=== PATIENT | male | born 1955 | race African-American/Black ===

== ENCOUNTER 2016-11-12 15:52 | Emergency (ER) | payer MEDICAID, OTHER ==
[~2016-11-12] VITALS: Ht 170.2 cm; Wt 72.7 kg
[~2016-11-12 15:52] MED LIST: AMIT50TA3 PO; ASPI-556 PO; DOCU250C91 PO; DOXE25 PO; OMEP20 PO; SERT50TA12 PO
[2016-11-12] MEDS ORDERED: KETOROLAC TROMETHAMINE 60 MG/2 ML VIAL IM ONE (18:15)
[2016-11-12 19:30] VITALS: BP 128/78
== END 2016-11-12 19:33 | disposition home or self-care (01) ==
LOC: EMS 15:53
DX: S13.4XXA Sprain of ligaments of cervical spine, initial encounter (principal); F31.9 Bipolar disorder, unspecified; K21.9 Gastro-esophageal reflux disease without esophagitis; F17.210 Nicotine dependence, cigarettes, uncomplicated; G43.909 Migraine, unspecified, not intractable, without status migrainosus; M54.9 Dorsalgia, unspecified; Z79.899 Other long term (current) drug therapy; V89.2XXA Person injured in unspecified motor-vehicle accident, traffic, initial encounter; Y93.89 Activity, other specified; Y92.89 Other specified places as the place of occurrence of the external cause; Y99.8 Other external cause status
CPT/HCPCS: 72040; 96372; 99284; 99406; J1885

== ENCOUNTER 2017-03-20 13:37 | Emergency (ER) | payer OTHER ==
[~2017-03-20] VITALS: Ht 170.2 cm; Wt 80.0 kg
[~2017-03-20 13:37] MED LIST changes: -ASPI-556 PO; -DOXE25 PO
[2017-03-20] MEDS ORDERED: QUET25TA PO (13:54)
[2017-03-20] MEDS ORDERED: IBUPROFEN 800 MG TABLET PO ONE (15:00)
[2017-03-20 15:25] VITALS: BP 142/78
== END 2017-03-20 16:15 | disposition home or self-care (01) ==
LOC: EMS 13:39
DX: M25.531 Pain in right wrist (principal); M25.521 Pain in right elbow; R03.0 Elevated blood-pressure reading, without diagnosis of hypertension; K21.9 Gastro-esophageal reflux disease without esophagitis; F14.90 Cocaine use, unspecified, uncomplicated; F12.90 Cannabis use, unspecified, uncomplicated; F17.210 Nicotine dependence, cigarettes, uncomplicated
CPT/HCPCS: 99284

== ENCOUNTER 2018-07-03 20:00 | Emergency (ER) | payer OTHER ==
[~2018-07-03] VITALS: Ht 170.2 cm; Wt 72.7 kg
[~2018-07-03 20:00] MED LIST changes: -DOCU250C91 PO; +QUET25TA PO; -SERT50TA12 PO
[2018-07-03 20:25] LABS: BASOPHILS % (AUTO) 0.5 % (0.0-2.0); EOSINOPHILS % (AUTO) 3.7 % (1.0-6.0); HEMATOCRIT 41.2 % (41-53); HEMOGLOBIN 14.2 g/dL (13.5-17.5); LYMPHOCYTES # (AUTO) 2.5 K/uL (1.0-4.8); LYMPHOCYTES % (AUTO) 28.4 % (22.0-44.0); MEAN CORPUSCULAR HEMOGLOBIN 29.2 pg (26.0-34.0); MEAN CORPUSCULAR HGB CONC 34.4 G/dL (31.0-37.0); MEAN CORPUSCULAR VOLUME 85 fL (80-100); MONOCYTES # (AUTO) 0.6 K/uL (0.1-1.0); MONOCYTES % (AUTO) 7.2 % (2.0-9.0); NEUTROPHILS # (AUTO) 5.2 K/uL (1.8-7.7); NEUTROPHILS % (AUTO) 60.2 % (40.0-70.0); PLATELET COUNT (AUTO) 237 K/uL (150-450); RED BLOOD CELL COUNT(AUTO) 4.86 MIL/uL (4.50-5.90); RED CELL DISTRIBUTION WIDTH 14.5 % (11.5-14.5)
[2018-07-03 20:38] LABS: ANION GAP 7 mmol/L (8-16); CALCIUM, TOTAL 9.2 mg/dL (8.8-10.5); CARBON DIOXIDE 31 mmol/L (22-29); CHLORIDE 104 mmol/L (98-107); CREATININE 1.15 mg/dL (0.60-1.30); GLOMERULAR FILTR. RATE CALC > 60 mL/min (>60); GLUCOSE,RANDOM 105 mg/dL (70-110); POTASSIUM 3.4 mmol/L (3.5-5.1); SODIUM SERUM 142 mmol/L (136-145); UREA NITROGEN, BLOOD 17 mg/dL (7-18)
[2018-07-03 20:44] LABS: ALANINE AMINOTRANSFERASE 26 U/L (12-78); ALBUMIN 3.3 g/dL (3.4-5.0); ALKALINE PHOSPHATASE 115 U/L (46-116); ASPARTATE AMINOTRANSFERASE 19 U/L (15-37); BILIRUBIN,TOTAL 0.4 mg/dL (0.1-1.0)
[2018-07-03] MEDS ORDERED: ASPIRIN 81 MG CHEWABLE TABLET PO ONE (22:00)
[2018-07-03 23:50] VITALS: BP 137/85
== END 2018-07-03 23:54 | disposition home or self-care (01) ==
LOC: EMS 20:02
DX: R07.9 Chest pain, unspecified (principal); F31.9 Bipolar disorder, unspecified; K21.9 Gastro-esophageal reflux disease without esophagitis; F12.90 Cannabis use, unspecified, uncomplicated; F15.90 Other stimulant use, unspecified, uncomplicated; F14.90 Cocaine use, unspecified, uncomplicated; F17.210 Nicotine dependence, cigarettes, uncomplicated
CPT/HCPCS: 93005

== ENCOUNTER 2018-08-02 23:57 | Emergency (ER) | payer OTHER ==
[~2018-08-02] VITALS: Ht 170.2 cm; Wt 72.7 kg
[2018-08-03 00:58] VITALS: BP 146/88
[2018-08-03] MEDS ORDERED: FLUORESCEIN SODIUM 1 MG STRIP ONE (01:11)
[2018-08-03] MEDS: ACETAMINOPHEN 500 MG TABLET PO ONE (01:16)
[2018-08-03] MEDS: PROPARACAINE HCL 0.5% 15 ML OPHTHALMIC SOLUTION OU ONE (01:16)
== END 2018-08-03 01:30 | disposition home or self-care (01) ==
LOC: EMS 08-03
DX: H57.11 Ocular pain, right eye (principal); F31.9 Bipolar disorder, unspecified; K21.9 Gastro-esophageal reflux disease without esophagitis; G43.909 Migraine, unspecified, not intractable, without status migrainosus; F17.210 Nicotine dependence, cigarettes, uncomplicated; F12.90 Cannabis use, unspecified, uncomplicated; F19.90 Other psychoactive substance use, unspecified, uncomplicated; F14.90 Cocaine use, unspecified, uncomplicated
CPT/HCPCS: 99406

== ENCOUNTER 2020-01-25 15:51 | Emergency (ER) | payer OTHER ==
[~2020-01-25] VITALS: Ht 170.2 cm; Wt 75.0 kg
[2020-01-25 15:53] VITALS: BP 149/67
[2020-01-25] MEDS ORDERED: KETOROLAC TROMETHAMINE 30 MG/ML VIAL IM ONE (18:00)
== END 2020-01-25 18:15 | disposition home or self-care (01) ==
LOC: EMS 15:54
DX: M54.42 Lumbago with sciatica, left side (principal); F31.9 Bipolar disorder, unspecified; K21.9 Gastro-esophageal reflux disease without esophagitis; G43.909 Migraine, unspecified, not intractable, without status migrainosus; F17.210 Nicotine dependence, cigarettes, uncomplicated; F12.90 Cannabis use, unspecified, uncomplicated; F14.90 Cocaine use, unspecified, uncomplicated; F19.90 Other psychoactive substance use, unspecified, uncomplicated
CPT/HCPCS: 96372; 99283; J1885

== ENCOUNTER 2020-06-05 14:41 | Emergency (ER) | payer OTHER ==
[~2020-06-05] VITALS: Ht 170.2 cm; Wt 72.7 kg
[2020-06-05 16:24] LABS: BASOPHILS % (AUTO) 0.7 % (0.0-2.0); EOSINOPHILS % (AUTO) 1.2 % (1.0-6.0); HEMATOCRIT 42.9 % (41-53); HEMOGLOBIN 14.5 g/dL (13.5-17.5); LYMPHOCYTES # (AUTO) 1.2 K/uL (1.0-4.8); LYMPHOCYTES % (AUTO) 21.9 % (22.0-44.0); MEAN CORPUSCULAR HEMOGLOBIN 28.3 pg (26.0-34.0); MEAN CORPUSCULAR HGB CONC 33.8 G/dL (31.0-37.0); MEAN CORPUSCULAR VOLUME 84 fL (80-100); MONOCYTES # (AUTO) 0.4 K/uL (0.1-1.0); MONOCYTES % (AUTO) 7.1 % (2.0-9.0); NEUTROPHILS # (AUTO) 3.9 K/uL (1.8-7.7); NEUTROPHILS % (AUTO) 69.1 % (40.0-70.0); PLATELET COUNT (AUTO) 193 K/uL (150-450); RED BLOOD CELL COUNT(AUTO) 5.13 MIL/uL (4.50-5.90); RED CELL DISTRIBUTION WIDTH 15.7 % (11.5-14.5)
[2020-06-05 16:34] LABS: ANION GAP 10 mmol/L (8-16); CALCIUM, TOTAL 8.2 mg/dL (8.8-10.5); CARBON DIOXIDE 27 mmol/L (22-29); CHLORIDE 102 mmol/L (98-107); CREATININE 1.22 mg/dL (0.60-1.30); GLOMERULAR FILTR. RATE CALC > 60 mL/min (>60); GLUCOSE,RANDOM 171 mg/dL (70-110); POTASSIUM 3.1 mmol/L (3.5-5.1); SODIUM SERUM 139 mmol/L (136-145); UREA NITROGEN, BLOOD 15 mg/dL (7-18)
[2020-06-05 16:42] LABS: ALANINE AMINOTRANSFERASE 21 U/L (12-78); ALBUMIN 3.2 g/dL (3.4-5.0); ALKALINE PHOSPHATASE 119 U/L (46-116); ASPARTATE AMINOTRANSFERASE 15 U/L (15-37); BILIRUBIN,TOTAL 0.3 mg/dL (0.1-1.0); TOTAL PROTEIN, SERUM 6.8 g/dL (6.4-8.2)
[2020-06-05] MEDS ORDERED: POTASSIUM CHLORIDE 20 MEQ ER TABLET PO ONE (17:00)
[2020-06-05 17:24] VITALS: BP 157/80
== END 2020-06-05 17:41 | disposition home or self-care (01) ==
LOC: EMS 14:41
DX: E87.6 Hypokalemia (principal); U07.1 COVID-19; F31.9 Bipolar disorder, unspecified; F17.210 Nicotine dependence, cigarettes, uncomplicated; F12.90 Cannabis use, unspecified, uncomplicated; F15.90 Other stimulant use, unspecified, uncomplicated; F14.90 Cocaine use, unspecified, uncomplicated
CPT/HCPCS: 93005; 99284; 99285; 36415-L1; 36415-TC; 71045-TC

== ENCOUNTER 2020-12-18 01:55 | Emergency (ER) | payer OTHER ==
[~2020-12-18] VITALS: Ht 170.2 cm; Wt 72.7 kg
[2020-12-18 01:57] VITALS: BP 116/61
[2020-12-18] MEDS ORDERED: CefTRIAXone SODIUM 500 MG in DEXTROSE 5%-WATER 50 ML IV ONE (03:15)
[2020-12-18] MEDS ORDERED: DOXYCYCLINE HYCLATE 100 MG TABLET PO ONE (03:15)
[2020-12-18] MEDS ORDERED: PENICILLIN G BENZATHINE LA 2,400,000 UNITS/4 ML SYRINGE IM ONE (03:15)
[2020-12-18] MEDS ORDERED: ACETAMINOPHEN 500 MG TABLET PO ONE (03:15)
[2020-12-18] MEDS ORDERED: CefTRIAXone SODIUM 1 GM/VIAL IM ONE (03:45)
[2020-12-18] MEDS ORDERED: LIDOCAINE/PF 1% 2 ML VIAL IM ONE (03:45)
== END 2020-12-18 04:04 | disposition home or self-care (01) ==
LOC: EMS 02:00
DX: L03.311 Cellulitis of abdominal wall (principal); F31.9 Bipolar disorder, unspecified; K21.9 Gastro-esophageal reflux disease without esophagitis; G43.909 Migraine, unspecified, not intractable, without status migrainosus; F17.210 Nicotine dependence, cigarettes, uncomplicated; F14.90 Cocaine use, unspecified, uncomplicated; F12.90 Cannabis use, unspecified, uncomplicated; F19.90 Other psychoactive substance use, unspecified, uncomplicated
CPT/HCPCS: 36415; 86592; 87491; 87591; 96372; 99284; J0561; J0696; J3490; J7060

== ENCOUNTER 2021-05-30 20:34 | Inpatient (IN) | payer OTHER ==
[~2021-05-30] VITALS: Ht 175.3 cm; Wt 77.4 kg
[2021-05-30] MEDS ORDERED: SODIUM CHLORIDE 0.9% 100 ML ONE (20:45)
[2021-05-30] MEDS ORDERED: IOHEXOL 350 MG/ML 100 ML VIAL ONE (20:45)
[2021-05-30] MEDS ORDERED: ACET-66 PO (20:47)
[2021-05-30] MEDS ORDERED: APIX5TAB PO (20:47)
[2021-05-30] MEDS ORDERED: TRAZ-252 PO (20:47)
[2021-05-30] MEDS ORDERED: DOXY50CA12 PO (20:47)
[2021-05-30 20:52] LABS: BASOPHILS % (AUTO) 0.7 % (0.0-2.0); EOSINOPHILS % (AUTO) 3.4 % (1.0-6.0); HEMATOCRIT 44.2 % (41-53); HEMOGLOBIN 15.4 g/dL (13.5-17.5); LYMPHOCYTES # (AUTO) 1.9 K/uL (1.0-4.8); MEAN CORPUSCULAR HEMOGLOBIN 28.2 pg (26.0-34.0); MEAN CORPUSCULAR HGB CONC 34.8 G/dL (31.0-37.0); MEAN CORPUSCULAR VOLUME 81 fL (80-100); MONOCYTES # (AUTO) 0.8 K/uL (0.1-1.0); MONOCYTES % (AUTO) 8.3 % (2.0-9.0); NEUTROPHILS # (AUTO) 6.1 K/uL (1.8-7.7); NEUTROPHILS % (AUTO) 66.6 % (40.0-70.0); PLATELET COUNT (AUTO) 230 K/uL (150-450); RED BLOOD CELL COUNT(AUTO) 5.45 MIL/uL (4.50-5.90); RED CELL DISTRIBUTION WIDTH 16.3 % (11.5-14.5)
[2021-05-30 20:57] LABS: ANION GAP 8 mmol/L (8-16); CALCIUM, TOTAL 9.1 mg/dL (8.8-10.5); CARBON DIOXIDE 29 mmol/L (22-29); CHLORIDE 105 mmol/L (98-107); CREATININE 1.09 mg/dL (0.60-1.30); GLOMERULAR FILTR. RATE CALC > 60 mL/min (>60); GLUCOSE,RANDOM 115 mg/dL (70-110); POTASSIUM 3.7 mmol/L (3.5-5.1); SODIUM SERUM 142 mmol/L (136-145); UREA NITROGEN, BLOOD 16 mg/dL (7-18)
[2021-05-30 21:04] LABS: ALANINE AMINOTRANSFERASE 25 U/L (12-78); ALBUMIN 3.6 g/dL (3.4-5.0); ALKALINE PHOSPHATASE 112 U/L (46-116); ASPARTATE AMINOTRANSFERASE 19 U/L (15-37); BILIRUBIN,TOTAL 0.8 mg/dL (0.1-1.0); TOTAL PROTEIN, SERUM 7.6 g/dL (6.4-8.2)
[2021-05-30 21:06] LABS: INR 1.2 (0.9-1.1); PROTHROMBIN TIME 12.2 SEC (9.4-11.6)
[2021-05-30] MEDS ORDERED: CLOPIDOGREL BISULFATE 75 MG TABLET PO ONE (21:45)
[2021-05-30] MEDS ORDERED: ONDANSETRON HCL 4 MG/2 ML VIAL IVP PRN ×2 (21:45→23:45)
[2021-05-30] MEDS ORDERED: ACETAMINOPHEN 325 MG TABLET PO PRN ×2 (21:45→23:45)
[2021-05-30] MEDS ORDERED: 0.9% SODIUM CHLORIDE 10 ML SYRINGE IVP PRN (21:45)
[2021-05-30] MEDS ORDERED: ASPIRIN 325 MG TABLET PO ONE (21:45)
[2021-05-30 21:51] LABS: COVID AG,FIA SOURCE NASAL SWAB
[2021-05-30 22:04] LABS: AMPHET/METH SCREEN,URINE POSITIVE (NEGATIVE); BARBITURATE SCREEN, URINE NEGATIVE (NEGATIVE); BENZODIAZEPINES SCREEN,URINE NEGATIVE (NEGATIVE); CANNABINOID SCREEN,URINE POSITIVE (NEGATIVE); COCAINE SCREEN,URINE POSITIVE (NEGATIVE); METHADONE SCREEN, URINE NEGATIVE (NEGATIVE); OPIATE SCREEN,URINE NEGATIVE (NEGATIVE); PHENCYCLIDINE SCREEN,URINE NEGATIVE (NEGATIVE)
[2021-05-30] MEDS ORDERED: MORPHINE SULFATE 2 MG/ML SYRINGE IVP PRN (23:45)
[2021-05-30] MEDS ORDERED: HYDROCODONE/ACETAMINOPHEN 5-325 MG TABLET PO PRN (23:45)
[2021-05-30] MEDS ORDERED: MAGNESIUM HYDROXIDE SUSPENSION 30 ML UDCUP PO PRN (23:45)
[2021-05-30] MEDS ORDERED: ZOLPIDEM TARTRATE 5 MG TABLET PO PRN (23:45)
[2021-05-30] MEDS ORDERED: BISACODYL 10 MG RECTAL RECTAL SUPPOSITORY PR PRN (23:45)
[2021-05-30] MEDS ORDERED: ASPIRIN 81 MG CHEWABLE TABLET PO ONE (23:45)
[2021-05-31] VITALS (8 sets, daily range): BP systolic 131–172; BP diastolic 77–97
[2021-05-31] MEDS: HEPARIN SODIUM,PORCINE 5,000 UNITS/ML VIAL SQ SCH ×4 (01:16→23:47)
[2021-05-31 07:56] LABS: BASOPHILS % (AUTO) 0.5 % (0.0-2.0); EOSINOPHILS % (AUTO) 4.4 % (1.0-6.0); HEMATOCRIT 44.8 % (41-53); HEMOGLOBIN 15.5 g/dL (13.5-17.5); LYMPHOCYTES # (AUTO) 2.8 K/uL (1.0-4.8); LYMPHOCYTES % (AUTO) 33.8 % (22.0-44.0); MEAN CORPUSCULAR HEMOGLOBIN 28.1 pg (26.0-34.0); MEAN CORPUSCULAR HGB CONC 34.5 G/dL (31.0-37.0); MEAN CORPUSCULAR VOLUME 82 fL (80-100); MONOCYTES # (AUTO) 0.7 K/uL (0.1-1.0); MONOCYTES % (AUTO) 7.8 % (2.0-9.0); NEUTROPHILS # (AUTO) 4.5 K/uL (1.8-7.7); NEUTROPHILS % (AUTO) 53.5 % (40.0-70.0); PLATELET COUNT (AUTO) 224 K/uL (150-450); RED BLOOD CELL COUNT(AUTO) 5.49 MIL/uL (4.50-5.90)
[2021-05-31 08:07] LABS: ALANINE AMINOTRANSFERASE 21 U/L (12-78); ALBUMIN 3.4 g/dL (3.4-5.0); ALKALINE PHOSPHATASE 109 U/L (46-116); ANION GAP 9 mmol/L (8-16); ASPARTATE AMINOTRANSFERASE 18 U/L (15-37); BILIRUBIN,TOTAL 0.7 mg/dL (0.1-1.0); CALCIUM, TOTAL 8.9 mg/dL (8.8-10.5); CARBON DIOXIDE 29 mmol/L (22-29); CHLORIDE 104 mmol/L (98-107); CREATININE 1.03 mg/dL (0.60-1.30); GLOMERULAR FILTR. RATE CALC > 60 mL/min (>60); GLUCOSE,RANDOM 84 mg/dL (70-110); POTASSIUM 3.6 mmol/L (3.5-5.1); SODIUM SERUM 142 mmol/L (136-145); TOTAL PROTEIN, SERUM 6.9 g/dL (6.4-8.2); UREA NITROGEN, BLOOD 15 mg/dL (7-18)
[2021-05-31] MEDS: PANTOPRAZOLE SODIUM 40 MG DR TABLET PO SCH (09:36)
[2021-05-31] MEDS: DOCUSATE SODIUM 100 MG CAPSULE PO SCH ×2 (09:36→21:21)
[2021-05-31] MEDS ORDERED: GADOTERATE MEGLUMINE 10 MMOL/20 ML VIAL IVP ONE (11:35)
[2021-05-31] MEDS: ATORVASTATIN CALCIUM 20 MG TABLET PO SCH (21:21)
[2021-06-01] VITALS (7 sets, daily range): BP systolic 133–152; BP diastolic 75–87
[2021-06-01 03:04] LABS: APPEARANCE,URINE CLEAR (CLEAR); BILIRUBIN,URINE NEGATIVE (NEGATIVE); GLUCOSE, URINE (UA) NEGATIVE (NEGATIVE); KETONES,URINE NEGATIVE (NEGATIVE); LEUKOCYTE ESTERASE ,URINE NEGATIVE (NEGATIVE); NITRATE,URINE NEGATIVE (NEGATIVE); OCCULT BLOOD,URINE NEGATIVE (NEGATIVE); PROTEIN,URINE NEGATIVE (NEGATIVE)
[2021-06-01 03:05] LABS: AMPHET/METH SCREEN,URINE POSITIVE (NEGATIVE); BARBITURATE SCREEN, URINE NEGATIVE (NEGATIVE); BENZODIAZEPINES SCREEN,URINE NEGATIVE (NEGATIVE); CANNABINOID SCREEN,URINE POSITIVE (NEGATIVE); COCAINE SCREEN,URINE POSITIVE (NEGATIVE); METHADONE SCREEN, URINE NEGATIVE (NEGATIVE); OPIATE SCREEN,URINE NEGATIVE (NEGATIVE)
[2021-06-01 03:06] LABS: PHENCYCLIDINE SCREEN,URINE NEGATIVE (NEGATIVE)
[2021-06-01 03:07] LABS: BACTERIA,URINE None Seen /HPF (None Seen); RBC,URINE None Seen /HPF (0-2); WBC,URINE None Seen /HPF (0-5)
[2021-06-01 07:12] LABS: BASOPHILS % (AUTO) 0.4 % (0.0-2.0); EOSINOPHILS % (AUTO) 1.9 % (1.0-6.0); HEMATOCRIT 46.3 % (41-53); HEMOGLOBIN 16.2 g/dL (13.5-17.5); LYMPHOCYTES # (AUTO) 2.9 K/uL (1.0-4.8); LYMPHOCYTES % (AUTO) 29.4 % (22.0-44.0); MEAN CORPUSCULAR HEMOGLOBIN 28.4 pg (26.0-34.0); MEAN CORPUSCULAR VOLUME 81 fL (80-100); MONOCYTES # (AUTO) 0.8 K/uL (0.1-1.0); MONOCYTES % (AUTO) 8.4 % (2.0-9.0); NEUTROPHILS # (AUTO) 5.8 K/uL (1.8-7.7); NEUTROPHILS % (AUTO) 59.9 % (40.0-70.0); PLATELET COUNT (AUTO) 229 K/uL (150-450); RED BLOOD CELL COUNT(AUTO) 5.73 MIL/uL (4.50-5.90)
[2021-06-01 07:21] LABS: ANION GAP 10 mmol/L (8-16); CALCIUM, TOTAL 9.2 mg/dL (8.8-10.5); CARBON DIOXIDE 27 mmol/L (22-29); CHLORIDE 103 mmol/L (98-107); CREATININE 1.15 mg/dL (0.60-1.30); GLOMERULAR FILTR. RATE CALC > 60 mL/min (>60); GLUCOSE,RANDOM 83 mg/dL (70-110); POTASSIUM 3.5 mmol/L (3.5-5.1); SODIUM SERUM 140 mmol/L (136-145); UREA NITROGEN, BLOOD 17 mg/dL (7-18)
[2021-06-01] MEDS: PANTOPRAZOLE SODIUM 40 MG DR TABLET PO SCH (08:18)
[2021-06-01] MEDS: DOCUSATE SODIUM 100 MG CAPSULE PO SCH ×2 (08:18→21:37)
[2021-06-01] MEDS: HEPARIN SODIUM,PORCINE 5,000 UNITS/ML VIAL SQ SCH ×3 (08:18→23:25)
[2021-06-01 20:22] LABS: CHOL/HDL RATIO 4.2 (4.2-7.3); CHOLESTEROL 234 mg/dL (131-200); HDL CHOLESTEROL 56 mg/dL (40-60); LDL CHOL (CALC.) 160 mg/dL (0-130); TRIGLYCERIDES 91 mg/dL (15-150)
[2021-06-01] MEDS: ASPIRIN 81 MG CHEWABLE TABLET PO SCH (21:37)
[2021-06-01] MEDS: ATORVASTATIN CALCIUM 20 MG TABLET PO SCH (21:37)
[2021-06-01] MEDS: CLOPIDOGREL BISULFATE 75 MG TABLET PO SCH (21:37)
[2021-06-02 05:34] VITALS: BP 150/80
[2021-06-02 07:47] LABS: BASOPHILS % (AUTO) 0.6 % (0.0-2.0); EOSINOPHILS % (AUTO) 1.1 % (1.0-6.0); HEMATOCRIT 45.4 % (41-53); LYMPHOCYTES # (AUTO) 2.9 K/uL (1.0-4.8); LYMPHOCYTES % (AUTO) 29.5 % (22.0-44.0); MEAN CORPUSCULAR HEMOGLOBIN 28.4 pg (26.0-34.0); MEAN CORPUSCULAR HGB CONC 35.2 G/dL (31.0-37.0); MEAN CORPUSCULAR VOLUME 81 fL (80-100); MONOCYTES # (AUTO) 0.9 K/uL (0.1-1.0); MONOCYTES % (AUTO) 8.7 % (2.0-9.0); NEUTROPHILS # (AUTO) 5.9 K/uL (1.8-7.7); NEUTROPHILS % (AUTO) 60.1 % (40.0-70.0); PLATELET COUNT (AUTO) 240 K/uL (150-450); RED BLOOD CELL COUNT(AUTO) 5.63 MIL/uL (4.50-5.90); RED CELL DISTRIBUTION WIDTH 15.9 % (11.5-14.5)
[2021-06-02 08:00] LABS: ANION GAP 9 mmol/L (8-16); CARBON DIOXIDE 25 mmol/L (22-29); CHLORIDE 104 mmol/L (98-107); CREATININE 1.28 mg/dL (0.60-1.30); GLOMERULAR FILTR. RATE CALC > 60 mL/min (>60); GLUCOSE,RANDOM 97 mg/dL (70-110); POTASSIUM 3.5 mmol/L (3.5-5.1); SODIUM SERUM 138 mmol/L (136-145); UREA NITROGEN, BLOOD 19 mg/dL (7-18)
[2021-06-02] MEDS: HEPARIN SODIUM,PORCINE 5,000 UNITS/ML VIAL SQ SCH ×2 (08:00→16:00)
[2021-06-02 09:01] VITALS: BP 151/79
[2021-06-02] MEDS: DOCUSATE SODIUM 100 MG CAPSULE PO SCH (09:17)
[2021-06-02] MEDS: CLOPIDOGREL BISULFATE 75 MG TABLET PO SCH (09:17)
[2021-06-02] MEDS: PANTOPRAZOLE SODIUM 40 MG DR TABLET PO SCH (09:18)
[2021-06-02] MEDS: ASPIRIN 81 MG CHEWABLE TABLET PO SCH (09:18)
[2021-06-02 12:03] VITALS: BP 141/72
[2021-06-02 15:27] VITALS: BP 139/73
[2021-06-06 17:36] VITALS: BP 124/80
== END 2021-06-02 20:00 | DRG 45 ==
LOC: EMS 20:35 → 5S 22:17 → 6S 06-02 15:00 → 6N 06-02 15:15
PROVIDERS: ADMIT Internal Medicine; ATTEND Internal Medicine
DX: I63.9 Cerebral infarction, unspecified (principal); G81.91 Hemiplegia, unspecified affecting right dominant side; G43.909 Migraine, unspecified, not intractable, without status migrainosus; K21.9 Gastro-esophageal reflux disease without esophagitis; R29.810 Facial weakness; R47.1 Dysarthria and anarthria; F19.10 Other psychoactive substance abuse, uncomplicated
CPT/HCPCS: 70496; 70498; 70553; 71045; 80048; 80053; 80061; 80307; 81001; 83735; 84100; 84484; 85025; 85610; 85730; 86850; 86900; 86901; 92610; 93005; 93306; 93880; 97112; 97116; 97162; 97166; 97530; 97535; 99285; J1644; J7050; Q9967; 36415-L1; 36415-TC; 70450; 70450-TC

== ENCOUNTER 2024-02-13 22:11 | Emergency (ER) | payer MEDICARE, OTHER ==
[~2024-02-13] VITALS: Ht 170.2 cm; Wt 63.6 kg
[~2024-02-13 22:11] MED LIST changes: +ACET-66 PO; -AMIT50TA3 PO; +AMLO2.5T96 PO; +APIX5TAB PO; +ATOR40TA71 PO; -OMEP20 PO; -QUET25TA PO; +TRAZ-252 PO
[2024-02-13 22:17] VITALS: TEMP 98.6
[2024-02-13 23:16] LABS: BASOPHILS % (AUTO) 0.6 % (0.0-2.0); EOSINOPHILS % (AUTO) 1.4 % (1.0-6.0); HEMATOCRIT 40.6 % (41-53); HEMOGLOBIN 13.7 g/dL (13.5-17.5); LYMPHOCYTES # (AUTO) 1.9 K/uL (1.0-4.8); LYMPHOCYTES % (AUTO) 20.6 % (22.0-44.0); MEAN CORPUSCULAR HEMOGLOBIN 29.5 pg (26.0-34.0); MEAN CORPUSCULAR HGB CONC 33.8 G/dL (31.0-37.0); MEAN CORPUSCULAR VOLUME 87 fL (80-100); MONOCYTES # (AUTO) 0.9 K/uL (0.1-1.0); MONOCYTES % (AUTO) 10.3 % (2.0-9.0); NEUTROPHILS % (AUTO) 67.1 % (40.0-70.0); PLATELET COUNT (AUTO) 260 K/uL (150-450); RED BLOOD CELL COUNT(AUTO) 4.64 MIL/uL (4.50-5.90); RED CELL DISTRIBUTION WIDTH 14.8 % (11.5-14.5)
[2024-02-13 23:31] LABS: ANION GAP 9 mmol/L (8-16); CALCIUM, TOTAL 9.1 mg/dL (8.8-10.5); CARBON DIOXIDE 33 mmol/L (22-29); CHLORIDE 100 mmol/L (98-107); CREATININE 1.14 mg/dL (0.60-1.30); GLOMERULAR FILTR. RATE CALC > 60 mL/min (>60); GLUCOSE,RANDOM 99 mg/dL (70-110); POTASSIUM 3.4 mmol/L (3.5-5.1); SODIUM SERUM 142 mmol/L (136-145); TROPONIN I-HIGH SENSITIVITY 12 ng/L (<76); UREA NITROGEN, BLOOD 17 mg/dL (7-18)
[2024-02-13 23:33] LABS: B-TYPE NATRIURETIC PEPTIDE 16 pg/mL (0-100)
[2024-02-13] MEDS: AZITHROMYCIN 500 MG TABLET PO ONE (23:49)
[2024-02-14] MEDS ORDERED: BENZ-227 PO (00:02)
[2024-02-14] MEDS ORDERED: AZIT-164 PO (00:02)
[2024-02-14 00:03] VITALS: BP 120/64; PULSE 90; RESP 16; O2SAT 98
== END 2024-02-14 00:13 | disposition home or self-care (01) ==
LOC: EMS 22:11
DX: J18.9 Pneumonia, unspecified organism (principal); K21.9 Gastro-esophageal reflux disease without esophagitis; F12.90 Cannabis use, unspecified, uncomplicated; F31.9 Bipolar disorder, unspecified; G43.909 Migraine, unspecified, not intractable, without status migrainosus; F17.210 Nicotine dependence, cigarettes, uncomplicated; F14.90 Cocaine use, unspecified, uncomplicated; F15.90 Other stimulant use, unspecified, uncomplicated; Z98.890 Other specified postprocedural states
CPT/HCPCS: 99285; 71045; 80048; 83880; 84484; 85025; 36415; 93005; J0456

== ENCOUNTER 2024-02-24 17:49 | Emergency (ER) | payer MEDICARE, OTHER ==
[~2024-02-24] VITALS: Ht 165.1 cm; Wt 68.2 kg
[~2024-02-24 17:49] MED LIST changes: +AZIT-164 PO; +BENZ-227 PO
[2024-02-24 17:56] VITALS: TEMP 97.9
[2024-02-24] MEDS: IBUPROFEN 600 MG TABLET PO ONE (18:55)
[2024-02-24] MEDS: METHOCARBAMOL 500 MG TABLET PO ONE (18:55)
[2024-02-24 18:56] VITALS: BP 142/72; PULSE 84; RESP 16; O2SAT 99
== END 2024-02-24 20:25 | disposition left against medical advice (07) ==
LOC: EMS 18:06
DX: S13.4XXA Sprain of ligaments of cervical spine, initial encounter (principal); K21.9 Gastro-esophageal reflux disease without esophagitis; F12.90 Cannabis use, unspecified, uncomplicated; F31.9 Bipolar disorder, unspecified; F14.90 Cocaine use, unspecified, uncomplicated; F15.90 Other stimulant use, unspecified, uncomplicated; F17.210 Nicotine dependence, cigarettes, uncomplicated; G43.909 Migraine, unspecified, not intractable, without status migrainosus; Z98.890 Other specified postprocedural states; V89.2XXA Person injured in unspecified motor-vehicle accident, traffic, initial encounter; Y93.89 Activity, other specified; Y92.410 Unspecified street and highway as the place of occurrence of the external cause; Y99.8 Other external cause status
CPT/HCPCS: 72040; 72070; 99284; Z7502; Z7610

== ENCOUNTER 2024-06-04 10:18 | Emergency (ER) | payer MEDICARE, OTHER ==
[~2024-06-04] VITALS: Ht 170.2 cm; Wt 63.6 kg
[2024-06-04 10:23] VITALS: BP 135/74; PULSE 92; RESP 19; TEMP 98.5; O2SAT 99
[2024-06-04] MEDS ORDERED: LOSA-382 PO (10:27)
[2024-06-04] MEDS ORDERED: ATOR20TA65 PO (10:27)
[2024-06-04] MEDS ORDERED: CLOP75TA32 PO (10:27)
[2024-06-04] MEDS: CARBAMIDE PEROXIDE 6.5% 15 ML OTIC SOLUTION AD ONE (11:25)
== END 2024-06-04 12:44 | disposition home or self-care (01) ==
LOC: EMS 10:26
DX: H61.21 Impacted cerumen, right ear (principal); K21.9 Gastro-esophageal reflux disease without esophagitis; F12.90 Cannabis use, unspecified, uncomplicated; F32.A Depression, unspecified; G43.909 Migraine, unspecified, not intractable, without status migrainosus; F17.210 Nicotine dependence, cigarettes, uncomplicated; F14.90 Cocaine use, unspecified, uncomplicated; F15.90 Other stimulant use, unspecified, uncomplicated; Z98.890 Other specified postprocedural states; Z79.02 Long term (current) use of antithrombotics/antiplatelets; Z79.899 Other long term (current) drug therapy; Z86.73 Personal history of transient ischemic attack (TIA), and cerebral infarction without residual deficits
CPT/HCPCS: 99282; Z7502; Z7610

== ENCOUNTER 2024-06-18 10:13 | Emergency (ER) | payer MEDICARE, OTHER ==
[~2024-06-18] VITALS: Ht 170.2 cm; Wt 71.0 kg
[~2024-06-18 10:13] MED LIST changes: -ACET-66 PO; -AMLO2.5T96 PO; -APIX5TAB PO; +ATOR20TA65 PO; -ATOR40TA71 PO; -AZIT-164 PO; -BENZ-227 PO; +CLOP75TA32 PO; +GUAI100L96 PO; +LOSA-382 PO; +OSEL75CA45 PO; -TRAZ-252 PO
[2024-06-18 10:19] VITALS: TEMP 98
[2024-06-18 11:02] LABS: COVID AG,FIA SOURCE NASAL SWAB
[2024-06-18] MEDS: MethylPREDNISolone SOD SUCC 125 MG/2 ML VIAL IVP ONE (11:08)
[2024-06-18] MEDS: IPRATROPIUM BROMIDE 0.5 MG/2.5 ML NEB SOLUTION NEB ONE (11:24)
[2024-06-18] MEDS: ALBUTEROL SULFATE 2.5 MG/0.5 ML NEB SOLUTION NEB ONE (11:24)
[2024-06-18 11:25] VITALS: PULSE 82; RESP 20; O2SAT 92
[2024-06-18 11:28] LABS: SARS-COV2 (COVID) ANTIGEN,FIA Negative (Negative)
[2024-06-18 11:29] LABS: INFLUENZA TYPE A NEGATIVE FOR TYPE A (NEGATIVE); INFLUENZA TYPE B NEGATIVE FOR TYPE B (NEGATIVE)
[2024-06-18 11:39] VITALS: PULSE 61; RESP 20; O2SAT 100
[2024-06-18 11:56] VITALS: BP 142/72; O2SAT 95
[2024-06-18] MEDS ORDERED: PRED-554 PO (12:26)
[2024-06-18] MEDS: ALBUTEROL SULFATE HFA 90 MCG/PUFF 8 GM INHALER IH ONE (12:58)
[2024-06-18 12:59] VITALS: PULSE 95; RESP 18; O2SAT 95
== END 2024-06-18 13:05 | disposition home or self-care (01) ==
LOC: EMS 11:03
DX: J44.9 Chronic obstructive pulmonary disease, unspecified (principal); F31.9 Bipolar disorder, unspecified; G43.909 Migraine, unspecified, not intractable, without status migrainosus; F17.210 Nicotine dependence, cigarettes, uncomplicated; F14.90 Cocaine use, unspecified, uncomplicated; F12.90 Cannabis use, unspecified, uncomplicated; F15.90 Other stimulant use, unspecified, uncomplicated; K21.9 Gastro-esophageal reflux disease without esophagitis; Z79.02 Long term (current) use of antithrombotics/antiplatelets; Z79.899 Other long term (current) drug therapy; Z86.73 Personal history of transient ischemic attack (TIA), and cerebral infarction without residual deficits; Z20.822 Contact with and (suspected) exposure to COVID-19
CPT/HCPCS: 99285; 96374; 71045; 87426; 87804; 94640; 93005; J2919; J3535; J7613

== ENCOUNTER 2024-07-03 10:13 | Emergency (ER) | payer MEDICARE, MEDICAID ==
[~2024-07-03] VITALS: Ht 170.2 cm; Wt 63.6 kg
[~2024-07-03 10:13] MED LIST changes: -OSEL75CA45 PO; +PRED-554 PO
[2024-07-03 10:43] VITALS: BP 105/78; TEMP 98.3
[2024-07-03 10:48] LABS: COVID AG,FIA SOURCE NASAL SWAB
[2024-07-03 11:08] LABS: SARS-COV2 (COVID) ANTIGEN,FIA Negative (Negative)
[2024-07-03 11:09] LABS: INFLUENZA TYPE A NEGATIVE FOR TYPE A (NEGATIVE); INFLUENZA TYPE B NEGATIVE FOR TYPE B (NEGATIVE)
[2024-07-03 12:22] VITALS: PULSE 81; RESP 18; RESP 20; O2SAT 93
[2024-07-03] MEDS: IPRATROPIUM BROMIDE 0.5 MG/2.5 ML NEB SOLUTION NEB ONE (12:22)
[2024-07-03] MEDS: ALBUTEROL SULFATE 2.5 MG/0.5 ML NEB SOLUTION NEB ONE (12:23)
[2024-07-03 12:37] VITALS: PULSE 79; RESP 20; O2SAT 99
[2024-07-03] MEDS: DEXAMETHASONE SOD PHOS 4 MG/ML 5 ML VIAL IM ONE (12:59)
[2024-07-03] MEDS ORDERED: METH4TAB3 PO (13:40)
[2024-07-03] MEDS ORDERED: AZIT250T9 PO (13:40)
[2024-07-03] MEDS ORDERED: ALBU18HF12 IH (13:40)
== END 2024-07-03 13:46 | disposition home or self-care (01) ==
LOC: EMS 10:21
DX: J44.0 Chronic obstructive pulmonary disease with (acute) lower respiratory infection (principal); J20.9 Acute bronchitis, unspecified; F12.90 Cannabis use, unspecified, uncomplicated; F17.210 Nicotine dependence, cigarettes, uncomplicated; Z79.52 Long term (current) use of systemic steroids; Z79.899 Other long term (current) drug therapy; Z20.822 Contact with and (suspected) exposure to COVID-19
CPT/HCPCS: 99284; 71045; 87426; 87804; 94640; 96372; J1100; J7613